=== PATIENT | female | born 1990 | race Caucasian/White ===

== ENCOUNTER 2018-01-03 12:04 | Emergency (ER) | payer MEDICAID, MEDICARE ==
[~2018-01-03] VITALS: Ht 147.3 cm; Wt 59.6 kg
[2018-01-03 12:06] VITALS: BP 112/73
== END 2018-01-03 14:30 | disposition home or self-care (01) ==
LOC: ED 14:24
DX: S16.1XXA Strain of muscle, fascia and tendon at neck level, initial encounter (principal); V43.52XA Car driver injured in collision with other type car in traffic accident, initial encounter; Y93.89 Activity, other specified; Y99.8 Other external cause status; Y92.89 Other specified places as the place of occurrence of the external cause
CPT/HCPCS: 72020; 72050; 99284

== ENCOUNTER 2018-01-29 17:23 | Emergency (ER) | payer OTHER, MEDICARE ==
[~2018-01-29] VITALS: Ht 147.3 cm; Wt 60.4 kg
[2018-01-29 17:25] VITALS: BP 111/69
[2018-01-29] MEDS ORDERED: KETOROLAC 30 MG/1 ML IM ONE (18:00)
[2018-01-29] MEDS ORDERED: DIAZEPAM 5 MG TABLET PO ONE (18:00)
[2018-01-29] MEDS ORDERED: KETOROLAC 30 MG/1 ML ONE (18:22)
[2018-01-29] MEDS ORDERED: DIAZEPAM 5 MG TABLET ONE (18:22)
[2018-01-29] MEDS ORDERED: MULT-516 PO (18:29)
== END 2018-01-29 19:34 | disposition home or self-care (01) ==
LOC: ED 18:02
DX: S06.0X9A Concussion with loss of consciousness of unspecified duration, initial encounter (principal); S16.1XXA Strain of muscle, fascia and tendon at neck level, initial encounter; F17.200 Nicotine dependence, unspecified, uncomplicated; V49.9XXA Car occupant (driver) (passenger) injured in unspecified traffic accident, initial encounter; Y93.89 Activity, other specified; Y99.8 Other external cause status; Y92.410 Unspecified street and highway as the place of occurrence of the external cause
CPT/HCPCS: 72125; 96372; 99284; J1885